=== PATIENT | female | born 1950 | race Two or more races ===

== ENCOUNTER 2024-03-08 12:47 | Outpatient (OUT) | payer MEDICARE, SELFPAY ==
[2024-03-08 13:11] LABS: Hemoglobin 12.8 g/dL (12.0-16.0)
--- NOTE | 2024-03-08 13:56 | RT_ITS ---
[facility] Test Date: 2024-03-08 Pat Name: GINNY SCHMID Department: Room: - Gender: Female Mechanic Recovery: Art Gonzales RRT : 1950 Requested By: Mod[place] Maldonado Order Number: [id number] Reading MD: Modesto Maldonado Interpretive Statements Pulmonary function testing was completed according to ATS criteria. Findings were considered accurate and reproducible. Both pre- and post-bronchodilator values utilized for spirometry. Spirometry (based on pre-bronchodilator values): -FEV1/FVC: Reduced @ 65% -FEV1: Moderately reduced @ 57% -FVC: Reduced @ 65% -UBY40-88%: Reduced @ 41% -There is a positive bronchodilator response in FVC. Lung volumes by plethysmography (based on pre-bronchodilator values): -RV: Normal @ 110% -TLC: Normal @ 95% Diffusion capacity: -DLCO: Moderate reduction @ 76% when corrected for Hb 12.8g/dL Flow-volume loop: -Moderate obstructive pattern Impressions: -Spirometry suggests moderate obstruction. There is a positive bronchodilator response. Lung volumes are normal. There is a mildly reduced diffusion capacity. Overall study suggests asthma-COPD overlap or COPD with a positive bronchodilator response. Clinical correlation required. Electronically Signed On 03-14-2024 7:07:06 EDT by Modesto Maldonado
[2024-03-08] MEDS: ALBUTEROL SULFATE 2.5 MG/3 ML VIAL NEB IH (13:57)
== END 2024-03-08 12:48 | disposition home or self-care (01) ==
LOC: CARD 12:56
PROVIDERS: PCP Family Medicine; Visit Provider Internal Medicine
DX: R91.8 Other nonspecific abnormal finding of lung field (principal)
CPT/HCPCS: 36415; 85018; 94060; 94726; 94729